=== PATIENT | male | born 1995 | race Caucasian/White ===

== ENCOUNTER 2020-01-09 07:10 | Day surgery (SDC) | payer SELFPAY ==
[2020-01-08 11:50] LABS: CALC OSMOLALITY 275 mosm/kg (275-300); CALCIUM 9.1 mg/dL (8.5-10.1); CARBON DIOXIDE 31.3 mmol/L (21.0-32.0); CHLORIDE - SERUM 102 mmol/L (98-107); GLUCOSE 88 mg/dL (74-106); POTASSIUM - SERUM 4.1 mmol/L (3.5-5.1); SODIUM 138 mmol/L (136-145); UREA NITROGEN 15 mg/dL (7-18); eGFR NON AFRICAN AMERICAN > 90 mL/min (90-120)
[2020-01-08 12:06] LABS: BASOPHILS 0.7 % (0-2); EOSINOPHILS 7.7 % (0-7); HEMATOCRIT 45.3 % (42.0-54.0); HEMOGLOBIN 15.2 g/dL (13.5-17.5); IMMATURE GRANULOCYTES 0.4 % (0-5); LYMPHOCYTES 19.3 % (15-50); MCH 32.7 pg (26.0-34.0); MCHC 33.6 g/dL (31.0-37.0); MCV 97.4 fL (80.0-100.0); MONOCYTES 12.6 % (2-11); NEUTROPHILS 59.3 % (40-80); PLATELET COUNT 217 10x3/uL (130-400); RBC 4.65 10x6/uL (4.20-6.10); RDW 11.5 % (11.5-14.5); WBC 8.5 10x3/uL (4.8-10.8)
[~2020-01-09] VITALS: Ht 177.8 cm; Wt 59.0 kg
--- NOTE | ~2020-01-09 | OP ---
PATIENT NAME: CONNIE JAY MEDICAL RECORD: [id number] :95 [facility] AD[facility]ION DATE: SURGEON: WILNER REBOLLAR MD DATE OF OPERATION: 01/09/2020 PREOPERATIVE DIAGNOSIS: Right inguinal hernia. POSTOPERATIVE DIAGNOSIS: Right inguinal hernia. PROCEDURE: Right inguinal hernia repair with medium PHS mesh. SURGEON: Wilner Rebollar MD REPORT OF PROCEDURE: The patient's abdomen was prepped and draped in sterile fashion. An oblique incision was made above the inguinal ligament on the right side. Electrocautery was used to dissect through the subcutaneous tissues. There were 2 large collections of veins found and these were clipped proximally and distally and ligated in standard fashion. We opened up the external oblique using electrocautery. At this point, we elevated the spermatic cord and a Doyle was placed around it. The patient had an indirect hernia defect that was densely adherent to the spermatic cord with tedious dissection. We were eventually able to get this off the spermatic cord without injuring any of these structures. The hernia sac was high ligated and tied off with 3-0 silk. An opening was made in the inguinal floor and the preperitoneal space of Retzius was opened up in all directions. A medium PHS mesh was then inserted and sutured down on all 4 sides using multiple interrupted 0 Vicryls. The wound was then irrigated out with normal saline. The ilioinguinal nerve was found and it had 2 branches, which were both ligated. The external oblique fascia was then closed with running 2-0 Vicryl, Lashawn's was closed with interrupted 3-0 Vicryl and the skin was closed with running subcutaneous 5-0 Monocryl. A 10 mL of 0.25% Marcaine with epinephrine was infused into the surrounding tissues and the wound was dressed appropriately. COMPLICATIONS: None. CONDITION: Stable. ANESTHESIA: General endotracheal and local. BLOOD LOSS: Minimal. TRANSINT:[id number] Voice Confirmation ID: [id number] DOCUMENT ID: [id number] WILNER REBOLLAR MD CC: [id number] DICTATION DATE: 01/09/20 1104 MEMS PROCESS ENGINEER: 01/09/201923 [facility] 01/09/20 [address] [place] [address]
[2020-01-09 08:22] VITALS: BP 108/75; Ht 177.8 cm; Wt 59.0 kg
[2020-01-09] MEDS ORDERED: HYDROCODON-ACE1 EA10 PO (11:00)
--- NOTE | 2020-01-09 13:44 | NUR ---
1340 MEDICATED FOR PAIN. MILD
--- NOTE | 2020-01-09 13:45 | NUR ---
1330 VOIDED X1 DRESSING WITH A SPOT NOTED. ICE PACK MAINTAINED
--- NOTE | 2020-01-09 19:03 | NUR ---
1300 INSTRUCTIONS GIVEN TO PT. VOIDED PRIOR TO D/C
== END 2020-01-09 14:15 | disposition home or self-care (01) ==
LOC: D.OPS 07:10 → D.PAN 09:00 → D.OPS 10:15
PROVIDERS: ATTEND Surgery
DX: K40.90 Unilateral inguinal hernia, without obstruction or gangrene, not specified as recurrent (principal)